=== PATIENT | female | born 1970 | race African-American/Black ===

== ENCOUNTER 2022-04-04 16:57 | Emergency (ER) | payer SELFPAY ==
[~2022-04-04] VITALS: Ht 175.3 cm; Wt 110.0 kg
[2022-04-04] MEDS ORDERED: HALOPERIDOL LACTATE 5 MG/ML INJ VIAL IM ONE (17:15)
[2022-04-04] MEDS ORDERED: diphenhdrAMINE HCL 50 MG/1 ML VL IM ONE ×2 (17:15)
[2022-04-04 19:30] VITALS: BP 142/89
== END 2022-04-04 23:13 | disposition left against medical advice (07) ==
LOC: EDBD 16:57 → ER 16:57
DX: F31.9 Bipolar disorder, unspecified (principal); Z53.21 Procedure and treatment not carried out due to patient leaving prior to being seen by health care provider
CPT/HCPCS: J1200; J1630